=== PATIENT | male | born 1955 | race Caucasian/White ===

== ENCOUNTER 2020-02-14 14:36 | Emergency (ER) | payer MEDICAID, OTHER ==
[~2020-02-14] VITALS: Ht 170.2 cm; Wt 139.7 kg
[~2020-02-14 14:36] MED LIST: FLUO10CA13 PO; METF500T17 PO; OMEP20TA62 PO
[2020-02-14 14:41] VITALS: BP 167/82
[2020-02-14] MEDS ORDERED: KETOROLAC 30 MG/1 ML ONE ×2 (15:02→15:33)
[2020-02-14] MEDS ORDERED: HYDROcodone/APAP 5/325 TABLET ONE ×2 (15:03→15:38)
[2020-02-14] MEDS ORDERED: HYDROcodone/APAP 5/325 TABLET PO ONE (15:30)
[2020-02-14] MEDS ORDERED: KETOROLAC 30 MG/1 ML IM ONE (15:30)
--- NOTE | 2020-02-14 15:35 | NUR ---
PT MEDICATED PER EMAR FOR PAIN
--- NOTE | 2020-02-14 16:04 | NUR ---
PT AMBULATED STEADILY TO RESTROOM.
--- NOTE | 2020-02-14 16:51 | NUR ---
PT REPORTS IMPROVEMENT IN PAIN WITH RX. DC EDUCATION PROVIDED, PT DEMONSTRATES UNDERSTANDING. PT AMBULATED STEADILY TO DC WITH RN. PT WALKING BACK TO HOTEL, REFUSING TAXI VOUCHER
== END 2020-02-14 16:53 | disposition home or self-care (01) ==
LOC: ED 15:07
DX: S39.012A Strain of muscle, fascia and tendon of lower back, initial encounter (principal); E11.9 Type 2 diabetes mellitus without complications; X58.XXXA Exposure to other specified factors, initial encounter; Y93.89 Activity, other specified; Y92.89 Other specified places as the place of occurrence of the external cause; Y99.8 Other external cause status
CPT/HCPCS: 72110; 96372; 99283; J1885

== ENCOUNTER 2021-01-04 06:20 | Emergency (ER) | payer MEDICAID, OTHER ==
[~2021-01-04] VITALS: Ht 172.7 cm; Wt 126.6 kg
[2021-01-04 06:26] VITALS: BP 156/75
--- NOTE | 2021-01-04 06:31 | NUR ---
PT TO LOBBY, WAIT TIME EXPLAINED.
--- NOTE | 2021-01-04 07:05 | NUR ---
CHROINC LOW BACK PAIN AGGRIVATED BY RECENT MISSTEP AND INJURY. PAIN 8/10. USUALLY MANAGED AT HOME WITH NSAIDS AND YEARLY STERIOD SHOTS. DENIES LOSS OF B&B. PAIN RADIATES DOWN R LEG. DENIES NERVE PAIN.
[2021-01-04] MEDS ORDERED: HYDROcodone/APAP 5/325 TABLET PO ONE (07:30)
[2021-01-04] MEDS ORDERED: HYDROcodone/APAP 5/325 TABLET ONE (07:31)
== END 2021-01-04 08:31 | disposition home or self-care (01) ==
LOC: ED 08:23
DX: S39.012A Strain of muscle, fascia and tendon of lower back, initial encounter (principal); E11.9 Type 2 diabetes mellitus without complications; X58.XXXA Exposure to other specified factors, initial encounter; Y93.89 Activity, other specified; Y92.89 Other specified places as the place of occurrence of the external cause; Y99.8 Other external cause status
CPT/HCPCS: 99283